=== PATIENT | male | born 1950 | race African-American/Black ===

== ENCOUNTER 2016-06-17 20:30 | Emergency (ER) | payer OTHER ==
[~2016-06-17] VITALS: Ht 154.9 cm; Wt 73.0 kg
[~2016-06-17 20:30] MED LIST: GLUCOPHAGE500 MG PO; MELOXICAM15 MG PO; OMEPRAZOLE20 MG PO; ZESTORETIC 20-1 EAC1 NG
[2016-06-17 21:08] LABS: MCH 28.7 PG (29.0-34.0); MCHC 32.2 G/DL (30.0-36.0); MCV 89.1 FL (86-99); MEAN PLAT.VOLUME 10.1 uM^3 (9.0-12.4); PLATELET COUNT 178 K/uL (156-360); RBC DIS.WIDTH-CV 13.6 % (11.8-14.6); RBC DIS.WIDTH-SD 44.3 % (39-53); RED BLOOD COUNT 5.05 M/uL (4.00-5.50); WHITE BLOOD COUNT 6.8 K/uL (4.1-10.2)
[2016-06-17 21:16] LABS: CHLORIDE 108 mEq/L (99-109); POTASSIUM 3.8 mEq/L (3.7-5.4); SODIUM 137 mEq/L (136-147)
[2016-06-17 21:18] LABS: GLUCOSE 143 mg/dL (70-99)
[2016-06-17 21:19] LABS: ANION GAP 8 MEQ/L (2-14)
[2016-06-17 21:20] LABS: TOTAL BILIRUBIN 0.3 mg/dL (0.0-1.0)
[2016-06-17 21:21] LABS: ALKALINE PHOSPHATASE 51 IU/L (3-129)
[2016-06-17 21:22] LABS: GFR ESTIMATE (CALCULATED) > 59 mL/min/
[2016-06-17 21:23] LABS: UREA NITROGEN (BUN) 19 mg/dL (9-23)
[2016-06-17] MEDS ORDERED: TRAMADOL HCL50 MG PO (23:29)
[2016-06-17] MEDS ORDERED: PREDNISONE20 MG PO (23:29)
[2016-06-17] MEDS ORDERED: VALIUM2 MG PO (23:31)
[2016-06-17 23:46] VITALS: BP 142/94
== END 2016-06-17 23:54 | disposition home or self-care (01) ==
LOC: EME 20:30
DX: S13.9XXA Sprain of joints and ligaments of unspecified parts of neck, initial encounter (principal); M62.838 Other muscle spasm; M79.602 Pain in left arm; I10 Essential (primary) hypertension; E11.9 Type 2 diabetes mellitus without complications; K21.9 Gastro-esophageal reflux disease without esophagitis; Z79.84 Long term (current) use of oral hypoglycemic drugs
CPT/HCPCS: 71020; 72050; 73030; 80053; 81003; 85027; 93005; 99281; 99285; J1100